=== PATIENT | male | born 1950 | race Caucasian/White ===

== ENCOUNTER 2018-11-04 10:42 | Outpatient (CLI) | payer OTHER, MEDICARE ==
[~2018-11-04] VITALS: Ht 177.8 cm; Wt 93.0 kg
[~2018-11-04 10:42] MED LIST: ASP81TEC PO; IBP200T PO
[2018-11-04] MEDS ORDERED: C,E,1CAP PO (11:26)
[2018-11-04] MEDS ORDERED: LISI-552 PO (11:26)
[2018-11-04] MEDS ORDERED: PANT40TA3 PO (11:26)
[2018-11-04] MEDS ORDERED: ASPI-999 PO (11:26)
[2018-11-04] MEDS ORDERED: DICL/MIS50 PO (11:26)
[2018-11-04] MEDS ORDERED: MULT-1104 PO (11:26)
[2018-11-05] MEDS ORDERED: HYDR-34 PO (14:00)
== END 2018-11-04 11:36 | disposition home or self-care (01) ==
LOC: PREOP 10:42
PROVIDERS: ATTEND Surgery
DX: Z01.818 Encounter for other preprocedural examination (principal)

== ENCOUNTER 2018-11-05 12:23 | Day surgery (SDC) | payer OTHER, MEDICARE ==
[~2018-11-05] VITALS: Ht 177.8 cm; Wt 93.0 kg
[2018-11-05] VITALS (11 sets, daily range): BP systolic 121–161; BP diastolic 66–100
[~2018-11-05 12:23] MED LIST changes: +ASPI-999 PO; +C,E,1CAP PO; +DICL/MIS50 PO; +LISI-552 PO; +MULT-1104 PO; +PANT40TA3 PO
--- OUTSIDE RECORDS SUMMARY | 2018-11-05 12:28 | XMS REPORT | Continuity of Care Document ---
Author Organization Unknown Address Unknown Allergies Active Description Code Type Severity Reaction Onset Reported/Identified Relationship to Patient Clinical Status Yes NO KNOWN DRUG ALLERGIES UNKNOWN NO KNOWN DRUG ALLERG Yes No Known Drug Allergies [id number] Drug Allergy Unknown N/A 12/01/2009 Medications Medication Packaging Start Date Stop Date Route Dosage Sig RANITIDINE TAB 150 MG (ZANTAC) Dose(s) 05/23/2017 05/30/2017 PRN Daily LISINOPRIL TAB 10 MG (ZESTRIL) Dose(s) 05/23/2017 05/29/2017 Daily&0900 ASA 81MG ENTERIC COATED TAB 81 MG (BABY ASPIRIN EC) Dose(s) 05/23/2017 05/29/2017 Daily&0900 MultiVits (Thera M Plus) (rypbliol-diru-tjqalbo) oral tablet Dose(s) 05/23/2017 06/21/2017 Daily&0900 NORMAL SALINE 1000CC IV BAG INJ 0.9 % (NS 1000CC IV BAG) ml 05/26/2017 05/27/2017 CONTINUOUSEVERY 0 Hour PANTOPRAZOLE TAB 40 MG (PROTONIX) Dose(s) 05/27/2017 05/27/2017 Daily&0900 Problems Date Dx Coded Attending Type Code Diagnosis Diagnosed By 05/16/2017 Byron Finch V70.0 ROUTINE GENERAL MEDICAL EXAMINATION AT A HEALTH CARE FACILITY 05/16/2017 Byron Finch Z00.00 ENCOUNTER FOR GENERAL ADULT MEDICAL EXAMINATION WITHOUT ABNORMAL FINDINGS 05/16/2017 Byron Finch 401.9 UNSPECIFIED ESSENTIAL HYPERTENSION 05/16/2017 Byron Finch I10 ESSENTIAL (PRIMARY) HYPERTENSION 05/16/2017 Byron Finch V70.0 ROUTINE GENERAL MEDICAL EXAMINATION AT A HEALTH CARE FACILITY 05/16/2017 Byron Finch V82.9 SCREENING FOR UNSPECIFIED CONDITION 05/16/2017 Byron Finch Z00.00 ENCOUNTER FOR GENERAL ADULT MEDICAL EXAMINATION WITHOUT ABNORMAL FINDINGS 05/16/2017 Byron Finch Z13.9 ENCOUNTER FOR SCREENING, UNSPECIFIED 05/16/2017 Byron Finch 401.9 UNSPECIFIED ESSENTIAL HYPERTENSION 05/16/2017 Byron Finch 787.1 HEARTBURN 05/16/2017 Byron Finch I10 ESSENTIAL (PRIMARY) HYPERTENSION 05/16/2017 Byron Finch W R12 HEARTBURN 05/16/2017 Byron Finch V70.0 ROUTINE GENERAL MEDICAL EXAMINATION AT A HEALTH CARE FACILITY 05/16/2017 Byron Finch V82.9 SCREENING FOR UNSPECIFIED CONDITION 05/16/2017 Byron Finch Z00.00 ENCOUNTER FOR GENERAL ADULT MEDICAL EXAMINATION WITHOUT ABNORMAL FINDINGS 05/16/2017 Byron Finch Z13.9 ENCOUNTER FOR SCREENING, UNSPECIFIED 05/16/2017 Byron Finch 401.9 UNSPECIFIED ESSENTIAL HYPERTENSION 05/16/2017 Byron Finch 787.1 HEARTBURN 05/16/2017 Byron Finch I10 ESSENTIAL (PRIMARY) HYPERTENSION 05/16/2017 Byron Finch R12 HEARTBURN 05/16/2017 Byron Finch V70.0 ROUTINE GENERAL MEDICAL EXAMINATION AT A HEALTH CARE FACILITY 05/16/2017 Byron Finch V82.9 SCREENING FOR UNSPECIFIED CONDITION 05/16/2017 Byron Finch Z00.00 ENCOUNTER FOR GENERAL ADULT MEDICAL EXAMINATION WITHOUT ABNORMAL FINDINGS 05/16/2017 Byron Finch Z13.9 ENCOUNTER FOR SCREENING, UNSPECIFIED 05/26/2017 Cate Stark 455.0 INTERNAL HEMORRHOIDS WITHOUT MENTION OF COMPLICATION 05/26/2017 Cate Stark 530.81 05/26/2017 Cate Stark 535.10 05/26/2017 Cate Stark 552.3 DIAPHRAGMATIC HERNIA WITH OBSTRUCTION 05/26/2017 Cate Stark 562.12 DIVERTICULOSIS OF COLON WITH HEMORRHAGE 05/26/2017 Cate Stark K21.0 GASTRO-ESOPHAGEAL REFLUX DISEASE WITH ESOPHAGITIS 05/26/2017 Cate Stark K29.30 CHRONIC SUPERFICIAL GASTRITIS WITHOUT BLEEDING 05/26/2017 Cate Stark K44.9 DIAPHRAGMATIC HERNIA WITHOUT OBSTRUCTION OR GANGRENE 05/26/2017 Cate Stark K57.30 DVRTCLOS OF LG INT W/O PERFORATION OR ABSCESS W/O BLEEDING 05/26/2017 Cate Stark W K64.2 THIRD DEGREE HEMORRHOIDS 05/26/2017 Cate Stark W V76.51 SCREENING FOR MALIGNANT NEOPLASMS OF COLON 05/26/2017 Cate Stark W Z12.11 ENCOUNTER FOR SCREENING FOR MALIGNANT NEOPLASM OF COLON 09/29/2017 Josette Byron Monsalve 724.5 BACKACHE, UNSPECIFIED 09/29/2017 JosetteByron Bello M54.9 DORSALGIA, UNSPECIFIED 10/08/2017 Byron Finch 724.5 BACKACHE, UNSPECIFIED 10/08/2017 Byron Finch M54.9 DORSALGIA, UNSPECIFIED 10/09/2017 Byron Finch V70.0 ROUTINE GENERAL MEDICAL EXAMINATION AT A HEALTH CARE FACILITY 10/09/2017 Byron Finch Z00.00 ENCOUNTER FOR GENERAL ADULT MEDICAL EXAMINATION WITHOUT ABNORMAL FINDINGS 10/09/2017 Byron Finch V70.0 ROUTINE GENERAL MEDICAL EXAMINATION AT A HEALTH CARE FACILITY 10/09/2017 Byron Finch Z00.00 ENCOUNTER FOR GENERAL ADULT MEDICAL EXAMINATION WITHOUT ABNORMAL FINDINGS 11/04/2018 CATE STARK MD Ot Z01.818 ENCOUNTER FOR OTHER PREPROCEDURAL EXAMIN Procedures There is no data. Results Test Result Range BMP - 05/16/17 09:50 Anion Gap 14 6-14 BUN 15 mg/dL 5-25 Calcium 9.8 mg/dL 8.3-10.4 Chloride 105 mmol/L 95-114 CO2 27 mEq/L 22-33 Creat 1.22 mg/dL 0.50-1.50 eGFR 60 mL/min/1.73m2 >59 Glucose 106 mg/dL 70-110 Osmo 292 280-295 Potassium 4.9 mmol/L 3.5-5.3 Sodium 141 mmol/L 134-148 CBC with Auto Diff - 05/22/17 13:21 Baso% 0.20 % 0.00-2.50 Eos 0.1 K/uL 0.0-0.7 Eos% 0.8 % 0.0-7.0 Hct 43.6 % 42.0-52.0 Hgb 14.7 g/dL 14.0-17.0 Lym 1.79 K/uL 0.60-3.40 Lym% 11.5 % 10.0-50.0 MCH 31.7 pg 27.0-31.2 MCHC 33.7 g/dL 32.0-36.0 MCV 94.2 fL 80.0-97.0 Pondera% 6.6 % 0.0-12.0 MPV 9.8 fL 7.4-10.0 Kanchan% 80.9 % 37.0-80.0 Plt 291 K/uL 150-400 RBC 4.63 M/uL 4.20-5.40 RDW 12.1 % 11.6-14.8 WBC 15.60 K/uL 5.00-10.00 Kanchan 12.62 K/uL 2.00-6.90 Pondera 1.0 K/uL 0.0-0.9 Baso 0.0 K/uL 0.0-0.2 EKG - 05/22/17 13:21 EKG Complete BMP - 05/26/17 10:01 Anion Gap 17 6-14 BUN 12 mg/dL 5-25 Calcium 9.5 mg/dL 8.3-10.4 Chloride 106 mmol/L 95-114 CO2 23 mEq/L 22-33 Creat 1.03 mg/dL 0.50-1.50 eGFR 73 mL/min/1.73m2 >59 Glucose 94 mg/dL 70-110 Osmo 293 280-295 Potassium 4.0 mmol/L 3.5-5.3 Sodium 142 mmol/L 134-148 Surgical Pathology - 05/26/17 12:49 Surg Path Sent to [facility] PSA Yearly Screen - 10/09/17 09:19 PSA TOTAL 4.0 ng/mL 0.0-4.0 PSA Yearly Screen - 10/21/18 09:55 PSA TOTAL 4.0 ng/mL 0.0-4.0 Thyroid Stimulating Hormone - 10/21/18 09:55 TSH 0.55 mIU/mL 0.32-5.00 Comprehensive Metabolic Panel - 11/03/18 16:21 Albumin 4.4 g/dL 3.6-5.1 ALP 152 U/L 35-130 ALT 155 U/L 6-45 Anion Gap 16 6-14 AST 50 U/L 2-40 BUN 14 mg/dL 5-25 Calcium 9.7 mg/dL 8.3-10.4 Chloride 107 mmol/L 95-114 CO2 22 mEq/L 22-33 Creat 1.25 mg/dL 0.50-1.50 eGFR 58 mL/min/1.73m2 >59 Globulin 2.8 g/dL 2.3-3.5 Glucose 90 mg/dL 70-110 Osmo 291 280-295 Potassium 4.4 mmol/L 3.5-5.3 Sodium 141 mmol/L 134-148 TBil 0.4 mg/dL 0.2-1.2 TP 7.2 g/dL 6.0-8.3 Amylase - 11/03/18 16:21 Amylase 61 U/L 20-100 Lipase - 11/03/18 16:21 Lipase 23 U/L 7-59 Encounters ACCT No. Visit Date/Time Discharge Status Pt. Type Provider Facility Loc./Unit Complaint [id number] 02/03/2017 09:05:19 02/03/2017 23:59:59 CLS Outpatient MEGHANN CARRILLO [id number] 12/01/2013 11:24:47 12/01/2013 23:59:59 CLS Outpatient MEGHANN CARRILLO [id number] 11/03/2018 16:13:00 11/03/2018 23:59:00 DIS Outpatient Cate Stark [id number] 10/29/2018 07:48:00 10/29/2018 23:59:00 DIS Outpatient Byron Finch [id number] 10/27/2018 07:54:00 10/27/2018 23:59:00 DIS Outpatient Byron iFnch [id number] 10/21/2018 09:46:00 10/21/2018 23:59:00 DIS Outpatient Byron Finch [id number] 07/29/2018 08:38:00 07/29/2018 23:59:00 DIS Outpatient NATI PEARSON [id number] 02/05/2018 09:00:00 02/05/2018 23:59:00 DIS Outpatient Byron Finch [id number] 10/09/2017 09:15:00 10/09/2017 23:59:00 DIS Outpatient Byron Finch [id number] 09/23/2017 07:43:00 10/08/2017 08:38:00 DIS Outpatient Byron Finch [id number] 05/26/2017 09:54:00 05/26/2017 14:00:00 DIS Outpatient Cate Stark [id number] 05/22/2017 13:01:00 05/22/2017 23:59:00 DIS Outpatient Cate Stark [id number] 05/16/2017 09:45:00 05/16/2017 23:59:00 DIS Outpatient Byron Finch [id number] 05/23/2017 15:20:43 Document Registration [id number] 11/04/2018 10:42:00 11/04/2018 11:36:00 DIS Outpatient CATE STARK MD Via [facility] PREOP LEFT INGUINAL HERNIA, GALLSTONES [id number] 12/23/2013 02:23:00 12/23/2013 03:16:00 DIS Emergency [id number] 11/05/2018 12:23:00 [facility]GU[facility] HERNIA
--- OUTSIDE RECORDS SUMMARY | 2018-11-05 12:28 | XMS REPORT ---
Author Author MEGHANN CARRILLO [facility] Address [address] [place], [place] [id number] Care Team Providers Care Medicare Interviewer Name Role Phone MEGHANN CARRILLO PCP Unavailable Allergies and Adverse Reactions Name Reaction Notes NO KNOWN DRUG ALLERGIES Plan of Treatment Not available. Medications Active Name Start Date Estimated Completion Date SIG Comments aspirin 81 mg oral tablet take 1 tablet (81 mg) by oral route once daily Motrin 800 mg oral tablet 11/05/2010 take 1 tablet by oral route 3 times a day as needed Problem List Description Status Onset Arthritis unspecified Active Vital Signs Date Time BP-Sys(mm[Hg] BP-Annie(mm[Hg]) HR(bpm) RR(rpm) Temp WT HT HC BMI BSA BMI Percentile O2 Sat(%) 12/13/2015 9:30:00 AM 140 mmHg 82 mmHg 82 bpm 18 rpm 98.2 F 217 lbs 70 in 31.14 kg/m2 2.20 m2 98 % 12/01/2013 10:54:00 AM 140 mmHg 80 mmHg 76 bpm 16 rpm 98 F 216 lbs 72 in 29.2946 kg/m 2.231 m 95 % 12/10/2011 9:43:00 AM 138 mmHg 60 mmHg 66 bpm 18 rpm 98.2 F 222 lbs 70 in 31.85 kg/m2 2.23 m2 12/20/2010 9:11:00 AM 138 mmHg 90 mmHg 61 bpm 16 rpm 98.7 F 221 lbs 97 % 11/19/2010 8:31:00 AM 136 mmHg 84 mmHg 68 bpm 16 rpm 99.1 F 96 % 11/05/2010 9:33:00 AM 150 mmHg 90 mmHg 72 bpm 16 rpm 97.8 F 222.5 lbs 01/04/2010 10:15:00 AM 136 mmHg 76 mmHg 72 bpm 16 rpm 97.8 F 212.375 lbs 70 in 30.47 kg/m2 2.18 m2 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 History Of Immunizations Not available. History of Past Illness Name Date of Onset Comments Arthritis unspecified General medical examination; routine general medical examination at a health care facility Jan 04 2010 10:17AM Low Back Pain Nov 05 2010 9:33AM Low Back Pain Nov 19 2010 8:31AM Neuropathy, left foot Nov 19 2010 8:31AM Resolved Low Back Pain Dec 20 2010 9:11AM Resolved Neuropathy, left foot Dec 20 2010 9:11AM DOT Dec 10 2011 9:48AM DOT Physical Dec 01 2013 10:54AM DOT Physical Dec 13 2015 9:30AM Payers Insurance Name Company Name Plan Name Plan Number Policy Number Policy Group Number Start Date BCBS Bcbs [facility] [id number] N/A [facility] Med Occupational Medicine [id number] December [employer] [id number] DOT N/A History of Encounters Visit Date Visit Type Provider 12/13/2015 Office visit MEGHANN GREGG 12/01/2013 Office visit MEGHANN GREGG 12/10/2011 Office visit Neeru Starr APRN 12/20/2010 Office visit Kya Olivera MD 11/19/2010 Office visit Kya Olivera MD 11/05/2010 Office visit Kya Olivera MD 01/04/2010 Office visit Lisy GREGG
[2018-11-05] MEDS ORDERED: BUP/EPI 0.5% 1:200,000 (SENSORCAINE) 30 ML VIAL ONE (12:34)
[2018-11-05] MEDS ORDERED: ceFAZolin 2 GM IV Premixed 50 ML IV ONE (12:45)
[2018-11-05] MEDS: LACTATED RINGERS 1,000 ML IV PRN ×2 (12:45→15:15)
[2018-11-05] MEDS ORDERED: DEXAMETHASONE 10 MG/ML (DECADRON) 1 ML VIAL ONE (13:13)
[2018-11-05] MEDS ORDERED: MIDAZOLAM 2 MG/2 ML (VERSED) VIAL ONE (13:13)
[2018-11-05] MEDS ORDERED: LIDOCAINE PF 2% 5 ML (XYLOCAINE) VIAL ONE (13:13)
[2018-11-05] MEDS ORDERED: ONDANSETRON 4 MG/2 ML (SDV) Z0FRAN ONE (13:13)
[2018-11-05] MEDS ORDERED: SEVOFLURANE (ULTANE) 15 ML INHAL SOLN ONE ×4 (13:13→15:46)
[2018-11-05] MEDS ORDERED: proPOfol 200 MG/20 ML (DIPRIVAN) VIAL IV ONE (13:13)
[2018-11-05] MEDS ORDERED: fentaNYL INJECTION 100 MCG/2 ML AMP ONE ×2 (13:13→15:03)
[2018-11-05] MEDS ORDERED: ROCURONIUM 10 MG/ML 5 ML SYRINGE IV ONE (13:13)
--- NOTE | 2018-11-05 13:58 | Progress Note-Pre Operative ---
Pre-Operative Progress Note H&P Reviewed The H&P was reviewed, patient examined and no changes noted. Date Seen by Provider: Nov 05, 2018 Time Seen by Provider: 13:00 Date H&P Reviewed: Nov 05, 2018 Time H&P Reviewed: 13:00 Pre-Operative Diagnosis: chronic cholecystitis, left inguinal hernia CATE ABRAHAM MD Nov 05, 2018 13:58
[2018-11-05] MEDS ORDERED: ACETAMINOPHEN 325 MG TABLET PO PRN (14:00)
[2018-11-05] MEDS ORDERED: morphine INJ 10 MG/ML 1ML (SYR OR VIAL) IV PRN (14:00)
[2018-11-05] MEDS ORDERED: ONDANSETRON 4 MG/2 ML (SDV) Z0FRAN IV PRN (14:00)
[2018-11-05] MEDS ORDERED: HYDROcodone/APAP 5 MG/325 MG (LORTAB) TAB PO PRN (14:00)
[2018-11-05] MEDS ORDERED: HYDR-34 PO (14:00)
--- NOTE | 2018-11-05 14:02 | Discharge Inst-Surgical ---
D/C Lap Instructions-JARAD New, Converted, or Re-Newed RX: RX on Chart Follow Up Appt in 2 weeks Activity as tolerated No driving for 24 hours No driving while on pain medications Incentive Spirometry use every 2 hours while awake Regular Diet Symptoms to Report: Fever over 101 degree F, Nausea/Vomiting Infection Signs and Symptoms to report: Increased redness, Foul odor of wound, Increased drainage Bathing instructions: May shower Operative Area Clean/Dry; Keep incision clean/dry If any problems/questions: Contact your physician or go to Emergency Room CATE ABRAHAM MD Nov 05, 2018 14:02
[2018-11-05] MEDS ORDERED: GLYCOPYRROLATE 0.2 MG/ML (ROBINUL) 2 ML VIAL ONE (14:49)
[2018-11-05] MEDS ORDERED: NEOSTIGMINE 1 MG/ML 5 ML SYRINGE ONE (14:49)
[2018-11-05] MEDS ORDERED: HYDROmorphone 2 MG/ML VIAL (DILAUDID) ONE (15:53)
--- NOTE | 2018-11-05 15:53 | Progress Note-Post Operative ---
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 Procedure & Operative Findings Date of Procedure 11/05/18 Procedure Performed/Findings laparoscopic cholecystectomy and left recurrent inguinal hernia repair with mesh. Anesthesia Type GET Estimated Blood Loss Estimated blood loss (mL): minimal Specimens/Packing Specimens Removed none CATE ABRAHAM MD Nov 05, 2018 15:53
[2018-11-05] MEDS ORDERED: MEPERIDINE (DEMEROL) INJ 50 MG/ML IVP ONE (16:15)
[2018-11-05] MEDS ORDERED: fentaNYL INJECTION 100 MCG/2 ML AMP IVP ONE (16:15)
[2018-11-05] MEDS ORDERED: ONDANSETRON 4 MG/2 ML (SDV) Z0FRAN IVP PRN (16:15)
[2018-11-05] MEDS ORDERED: morphine INJ 10 MG/ML 1ML (SYR OR VIAL) IVP ONE (16:15)
--- NOTE | 2018-11-05 20:37 | OPERATIVE REPORT ---
DATE OF SERVICE: 11/05/2018 ATTENDING PRIMARY CARE PHYSICIAN: Dr. Finch. PREOPERATIVE DIAGNOSES: Chronic calculous cholecystitis, symptomatic reducible recurrent left inguinal hernia. POSTOPERATIVE DIAGNOSES: Chronic calculous cholecystitis. Recurrent left indirect inguinal hernia. No recurrent right inguinal hernia component. PROCEDURE: Laparoscopic cholecystectomy and left recurrent inguinal hernia repair with mesh. SURGEON: Cate Abraham MD PHYSICIAN EXTENDER: Misha Alonso APRN ANESTHESIA: General endotracheal. ESTIMATED BLOOD LOSS: Minimal. FINDINGS: No acute inflammation of the gallbladder. The gallbladder was inspected ex-vivo, which did show multiple gallstones. Left recurrent indirect inguinal hernia. No recurrent right inguinal hernia component. DISPOSITION: The patient tolerated the procedure well. INDICATIONS: The patient is a 68-year-old male who we have seen before in the past for gastroesophageal reflux disease as well as for a screening colonoscopy. He had reported two different issues. He has had epigastric crampy pain for the past year and a half and also has felt fatigued and weak. He also reports episodes of nausea and vomiting after eating a meal. A CT scan was performed, which did show gallstones. There was also mild dilatation of common bile duct at 1 cm. When he was seen in the office, he did not report any pain and did not show any jaundice nor any scleral icterus and stated that his urine color were normal as were stools. He also has a recurrent left inguinal hernia. He had open bilateral inguinal hernias repaired in the . He reports recurrence of the left inguinal hernia some time ago, which was initially asymptomatic; however, the years has grown larger in size and become painful. Upon examination, he was found to have a recurrent left inguinal hernia, which was reducible; however, tender to palpation. DESCRIPTION OF PROCEDURE: The patient was brought to the operating room, laid supine on the table. After adequate IV pain and sedative medications and conscious and general endotracheal intubation, the abdomen was prepped and draped in standard surgical fashion. A 0.5% Marcaine with epinephrine was used to anesthetize the overlying skin in the left upper abdomen and a transverse skin incision made using 15 blade. An 0 silk suture was applied to the medial aspect of the incision for retraction and a Veress needle inserted with a low opening pressure of 0 mmHg and the abdomen was then insufflated to 15 mmHg pressure. The Veress needle removed and a 5 mm Xcel trocar placed followed by a 5 mm 45-degree angle laparoscope visualizing the peritoneal cavity. A 4-quadrant abdominal exploration was performed. There were no acute inflammatory changes of the gallbladder. Liver, stomach, omentum appeared normal. Under direct visualization, we then proceeded to place a supraumbilical 10 mm port after the skin and peritoneal lining were anesthetized using 0.5% Marcaine with epinephrine. A transverse skin incision made using 15 blade. In a similar manner, a right upper abdominal quadrant 5 mm port was placed. The patient was then placed in reverse Trendelenburg position as well as plane right side up, left side down. The fundus of the gallbladder was then retracted anteriorly and superiorly. The hepatoduodenal ligament was then opened using blunt dissection as well as electrocautery using a hook instrument. The entire critical view of safety was identified including the triangle of Calot as well as the cystic duct and artery as the only two structures going into the gallbladder as well as the cystic plate behind the proximal gallbladder. A timeout was then taken and the cystic duct and artery were then clipped proximally, distally and cut with EndoShears. The gallbladder was then dissected off the liver bed using cautery on the hook instrument with visualization of good hemostasis as well as no leaking ducts of Luschka. The gallbladder was then dissected off the liver bed using cautery on hook instrument with visualization of good hemostasis as well as no leaking ducts of Luschka. The gallbladder was removed through the 10 mm port site using an EndoCatch bag. We then turned our attention towards the recurrent left indirect inguinal hernia. Another 5 mm port was placed in the left lower abdominal quadrant under direct visualization. The peritoneal lining was then opened first laterally towards the conjoint tendon and inguinal ligament. This was done using Sonicision as well as blunt dissection. We then proceeded medially toward Elder's ligament. We then proceeded with inferior dissection encompassing the entire hernia sac as well as what appeared to be a cord lipoma. The cord and its contents were identified and spared throughout the process. Good hemostasis was observed. A medium size 3DMax polypropylene mesh was then placed through the 15 mm port site and tacked to Elder's ligament medially and the conjoint tendon and inguinal ligament laterally. The omentum was then placed entirely over the mesh and a few absorbable tacks placed to keep these in place with visualization of good hemostasis. The 10 mm port site fascia and peritoneum were then closed under direct visualization using a Mark-Keagan device and 0 Vicryl suture. The abdomen was then desufflated and remaining ports removed. All skin incisions were closed using 4-0 Monocryl running subcuticular sutures. Wounds were then cleaned and covered with Dermabond. The patient tolerated the procedure well. We will start IV normal pain medication as well as a clear liquid diet. Once he is tolerating clears with good pain control with oral pain medication and is ambulating well, we will discharge him home. He will be instructed to do no heavy lifting or exertion for the next 2 weeks at least for the next two weeks. 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
== END 2018-11-05 17:55 | disposition home or self-care (01) ==
LOC: SDC 12:23
PROVIDERS: ATTEND Surgery
DX: K80.12 Calculus of gallbladder with acute and chronic cholecystitis without obstruction (principal); K40.91 Unilateral inguinal hernia, without obstruction or gangrene, recurrent; I10 Essential (primary) hypertension; K21.9 Gastro-esophageal reflux disease without esophagitis; Z79.82 Long term (current) use of aspirin; Z79.899 Other long term (current) drug therapy
CPT/HCPCS: 87081; 94664

== ENCOUNTER → 2021-07-03 | Outpatient (CLI) | payer MEDICARE, OTHER ==
[~2021-07-03] MED LIST changes: +HYDR-34 PO; -LISI-552 PO; +LISI20TA26 PO; -PANT40TA3 PO; +PANT40TA52 PO
--- NOTE | 2021-07-03 12:47 | Diagnostic Imaging Report ---
PROCEDURE: CT abdomen and pelvis without contrast. TECHNIQUE: Multiple contiguous axial images were obtained through the abdomen and pelvis without the use of intravenous contrast. Auto Exposure Controls were utilized during the CT exam to meet ALARA standards for radiation dose reduction. INDICATION: Prostate cancer. COMPARISON: Exam is compared with study 12/01/2009. FINDINGS: Prostate is nonfocal. The urinary bladder is not pathologically distended. There is no hydroureteronephrosis. There is no periaortic or retroperitoneal lymphadenopathy. No mesenteric mass. Pelvic sidewalls and inguinal canals are unremarkable aside from tiny fatty inguinal hernias. There is no acute or suspicious sclerotic or lytic bone lesion. There are hypertrophic degenerative changes to the spine, chronic. The lung bases are clear. Liver, spleen, adrenals, and pancreas are unremarkable. The gallbladder is surgically absent. There is faint punctate 1 mm radiopacity in the right kidney, suspect for tiny nonobstructing stone. No opaque ureteral calculi. The appendix is absent. There is noninflamed diverticulosis of the sigmoid. There is no ascites. IMPRESSION: No findings of metastatic disease, obstructive phenomena, inflammatory processes, or acute appearing abnormalities. Equivocal findings for punctate nonobstructing right renal stone. Dictated by: Dictated on workstation # [id number]
--- NOTE | 2021-07-03 15:22 | Diagnostic Imaging Report ---
INDICATION: Newly diagnosed prostate carcinoma. TECHNIQUE: Patient was administered 25 mCi technetium-99m MDP intravenously, and whole body imaging was performed after a three-hour delay. COMPARISON: No prior whole body bone scans are available for comparison. FINDINGS: There is normal uptake of activity by the axial and appendicular skeleton. There is uptake by the kidneys with excretion into the urinary bladder. There is mild uptake involving an upper thoracic vertebral body, approximately T7. There is also mild uptake involving an upper lumbar vertebral body, approximately L1 or L2. There is mild uptake at the left hip in the region of the acetabular roof. There is very subtle uptake involving an anterior left rib, approximately left fourth rib. This could be degenerative. Probable degenerative uptake in the shoulders is seen bilaterally, greater on the left. No other suspicious foci are identified. IMPRESSION: There are several areas of uptake, as described and which would be considered indeterminate. Uptake is fairly low level and could be on a degenerative basis. Continued follow-up would be recommended. Dictated by: Dictated on workstation # [id number]
== END ==
LOC: CARD 11:00
PROVIDERS: ATTEND Urology
DX: C61 Malignant neoplasm of prostate (principal)
CPT/HCPCS: 74176; 78306; A9503